=== PATIENT | female | born 2000 | race African-American/Black ===

== ENCOUNTER 2024-10-22 15:18 | Outpatient (REF) | payer OTHER, SELFPAY ==
[2024-10-23 17:33] LABS: Lyme Abs Screen <0.90 index
[2024-10-23 20:58] LABS: Anti DNA DS Antibody 39 IU/mL
== END 2024-10-22 15:19 | disposition home or self-care (01) ==
LOC: HO.LAB 15:18
PROVIDERS: PCP Nurse Practitioner Primary Care; Visit Provider Psychiatry & Neurology Neurology
DX: G62.9 Polyneuropathy, unspecified (principal)
CPT/HCPCS: 36415; 82550; 86225; 86617; 86618